=== PATIENT | male | born 1935 | race Caucasian/White ===

== ENCOUNTER → 2017-06-04 | Outpatient (CLI) | payer MEDICARE ==
[~2017-06-04] MED LIST: ASPI-650 PO; BENZ-17 PO; CARB1TAB20 PO; CYAN10002 IM; FLUT15.88 NS; GABA100C PO; LEVO100T5 PO; LOSA25TA5 PO; METO25TA35 PO; OMEP-110 PO; Sodium chloride PO; TAMS0.4C2 PO
[2017-06-04 16:14] LABS: ALBUMIN 3.6 g/dL (3.4-5.0); ANION GAP 9 mmol/L (5-15); CALCIUM 8.5 mg/dL (8.5-10.1); CHLORIDE 103 mmol/L (98-107)
[2017-06-04 16:17] LABS: ALANINE AMINOTRANSFERASE 12 U/L (12-78); ALKALINE PHOSPHATASE 94 U/L (45-117); BILIRUBIN,TOTAL 0.6 mg/dL (0.2-1.0); CREATININE 0.76 mg/dL (0.7-1.3); TOTAL PROTEIN 6.9 g/dL (6.4-8.2)
== END | disposition home or self-care (01) ==
LOC: STAR 14:07
PROVIDERS: ATTEND Internal Medicine Gastroenterology
DX: Z01.818 Encounter for other preprocedural examination (principal); R13.19 Other dysphagia; R63.4 Abnormal weight loss; J18.9 Pneumonia, unspecified organism; C16.9 Malignant neoplasm of stomach, unspecified; G20 Parkinson's disease
CPT/HCPCS: 36415; 80053; 93005

== ENCOUNTER 2017-06-14 05:42 | Day surgery (SDC) | payer MEDICARE ==
[~2017-06-14] VITALS: Ht 172.7 cm; Wt 77.0 kg
[2017-06-14] MEDS ORDERED: LACTATED RINGERS 1,000 ML IV SCH (06:05)
[2017-06-14] MEDS ORDERED: MIDAZOLAM 1 MG/ML, 2ML ONE (07:37)
[2017-06-14] MEDS ORDERED: FENTANYL PF 100 MCG/2ML ONE (07:37)
[2017-06-14] MEDS ORDERED: PROPOFOL 10 MG/ML, 20ML ONE (08:07)
[2017-06-14] MEDS ORDERED: OXYcodone 5 MG/5 ML ORAL.SOL UDC PO PRN (09:00)
[2017-06-14] MEDS ORDERED: LABETALOL 5MG/ML, 20ML IV PRN (09:00)
[2017-06-14] MEDS ORDERED: ONDANSETRON 2MG/ML, 2ML IVPush PRN (09:00)
[2017-06-14] MEDS ORDERED: MEPERIDINE/PF 25MG/0.5ML IVPush PRN (09:00)
[2017-06-14] MEDS ORDERED: FENTANYL PF 100 MCG/2ML IV PRN (09:00)
[2017-06-14] MEDS ORDERED: hydrALAzine 20 MG/ML, 1ML IV PRN (09:00)
[2017-06-14] MEDS ORDERED: ACETAMINOPHEN 325 MG TABLET PO PRN (09:00)
== END 2017-06-14 10:00 ==
LOC: OUT 05:42
PROVIDERS: ATTEND Internal Medicine Gastroenterology
DX: K29.50 Unspecified chronic gastritis without bleeding (principal); K21.9 Gastro-esophageal reflux disease without esophagitis; N40.0 Benign prostatic hyperplasia without lower urinary tract symptoms; G20 Parkinson's disease; E03.9 Hypothyroidism, unspecified; I10 Essential (primary) hypertension
CPT/HCPCS: 43239; 88305; J2250; J2704; J3010